=== PATIENT | male | born 1955 | race Asian ===

== ENCOUNTER 2017-05-29 17:29 | Emergency (ER) | payer OTHER ==
[~2017-05-29] VITALS: Ht 182.9 cm; Wt 59.0 kg
[2017-05-29 17:30] VITALS: BP 172/92
[2017-05-29] MEDS ORDERED: IBUPROFEN 200200 M1 PO (17:34)
[2017-05-29] MEDS ORDERED: IBUPROFEN 600600 M1 PO (18:27)
== END 2017-05-29 18:55 | disposition home or self-care (01) ==
LOC: ER 17:29
DX: S16.1XXA Strain of muscle, fascia and tendon at neck level, initial encounter (principal); Z98.890 Other specified postprocedural states; V89.2XXA Person injured in unspecified motor-vehicle accident, traffic, initial encounter; Y93.I9 Activity, other involving external motion; Y92.89 Other specified places as the place of occurrence of the external cause; Y99.8 Other external cause status